=== PATIENT | male | born 1975 | race Caucasian/White ===

== ENCOUNTER 2018-11-24 15:05 | Day surgery (SDC) | payer OTHER ==
[2018-11-24] MEDS ORDERED: Sodium Chloride 0.9(Preservative Free) 10 ML IJ ONE (15:06)
[2018-11-24] MEDS ORDERED: Depo-Medrol 40 MG/ML IM ONE (15:06)
[2018-11-24] MEDS ORDERED: DIPRIVAN 200 MG/20 ML IV ONE (15:06)
[2018-11-24] MEDS ORDERED: Ketamine HCl 50 MG/ML IJ ONE (15:06)
[2018-11-24] MEDS ORDERED: Lactated Ringers 1,000 ML IV ONE (18:08)
--- NOTE | 2018-11-25 08:30 | XRAY ---
Indication: Right L4-L5 and L5-S1 transforaminal LEONEL. Intraoperative fluoroscopy was provided for 17 seconds. 2 digital spot images submitted for interpretation demonstrates posterior needle tips projecting over the expected course of the right L4 and L5 nerve roots. Small amount of contrast injected for needle tip placement. Correlate with intraoperative findings/report.
--- NOTE | 2018-11-25 08:40 | XRAY ---
17 seconds of fluoroscopy was used in surgery for a right L4L5, L5S1 transforaminal LEONEL.
== END 2018-11-24 16:57 | disposition home or self-care (01) ==
LOC: SDC-PAIN 15:05
PROVIDERS: ATTEND Psychiatry & Neurology Pain Medicine
DX: M54.16 Radiculopathy, lumbar region (principal); Z79.899 Other long term (current) drug therapy; F41.9 Anxiety disorder, unspecified; F43.10 Post-traumatic stress disorder, unspecified
CPT/HCPCS: 64483; 64484; 72020; 77003; J1030; J2704; Q9967

== ENCOUNTER 2018-12-22 10:29 | Day surgery (SDC) | payer OTHER ==
[2018-12-22] MEDS ORDERED: Sodium Chloride 0.9(Preservative Free) 10 ML IJ ONE (10:30)
[2018-12-22] MEDS ORDERED: Ketamine HCl 50 MG/ML IJ ONE (10:30)
[2018-12-22] MEDS ORDERED: DIPRIVAN 200 MG/20 ML IV ONE (10:30)
[2018-12-22] MEDS ORDERED: Depo-Medrol 40 MG/ML IM ONE (10:30)
[2018-12-22] MEDS ORDERED: Xylocaine 1% Vial 30 ML PF IJ ONE (10:30)
[2018-12-22] MEDS ORDERED: MORPHINE SULFATE 10 MG/ML ONE (12:14)
[2018-12-22] MEDS ORDERED: Zofran 4 MG/2 ML VIAL ONE (12:15)
--- NOTE | 2018-12-22 13:24 | XRAY ---
Indication: Right L4-S1 transforaminal LEONEL. Intraoperative fluoroscopy was provided for 30 seconds. Single digital spot image submitted for interpretation demonstrates posterior needle tips projecting over the expected course of the right L4 and L5 nerve roots. Small amount of contrast injected for needle tip placement. Correlate with intraoperative findings/report.
--- NOTE | 2018-12-22 13:28 | XRAY ---
30 seconds of fluoroscopy was used in surgery for a right L4-L5, L5-S1 transforaminal LEONEL.
[2018-12-22] MEDS ORDERED: Lactated Ringers 1,000 ML IV ONE (14:54)
== END 2018-12-22 12:35 | disposition home or self-care (01) ==
LOC: SDC-PAIN 10:29
PROVIDERS: ATTEND Psychiatry & Neurology Pain Medicine
DX: M54.16 Radiculopathy, lumbar region (principal); F41.9 Anxiety disorder, unspecified; F43.10 Post-traumatic stress disorder, unspecified; Z79.899 Other long term (current) drug therapy
CPT/HCPCS: 64483; 64484; 72020; 77003; J1030; J2001; J2270; J2405; J2704; Q9966

== ENCOUNTER 2019-09-27 17:25 | Emergency (ER) | payer OTHER ==
[2019-09-27] MEDS ORDERED: BABY ASPIRIN 81 MG CHEW PO ONE (17:36)
--- NOTE | 2019-09-27 17:41 | ERPHSYRPT ---
- History of Present Illness Historian: patient Exam Limitations: no limitations Timing/Duration: today, intermittent Activities at Onset: none Quality: pressure Location: other (left sided) Chest Pain Radiation: jaw, arm Severity of Pain-Max: moderate Severity of Pain-Current: mild Modifying Factors: Improves With: nothing Associated Symptoms: other (tingling left hand) Prior Chest Pain/Cardiac Workup: no prior chest pain Aspirin Treatment Today: no aspirin today Allergies/Adverse Reactions: latex Allergy (Verified 09/27/19 17:50) Home Medications: Clonazepam 0.5 mg PO BID 09/27/19 [History] Oxycodone HCl/Acetaminophen [Oxycodon-Acetaminophen 7.5-325] 1 tab PO QID PRN [History] - Review of Systems Constitutional: No Fever, No Chills Eyes: No Symptoms Ears, Nose, & Throat: No Symptoms Respiratory: Dyspnea, No Cough Cardiac: Chest Pain, No Edema, No Syncope Abdominal/Gastrointestinal: No Abdominal Pain, No Nausea, No Vomiting, No Diarrhea Genitourinary Symptoms: No Dysuria Musculoskeletal: No Back Pain, No Neck Pain Skin: No Rash Neurological: Parasthesia, No Dizziness, No Focal Weakness, No Sensory Changes Psychological: No Symptoms Endocrine: No Symptoms All Other Systems: Reviewed and Negative - Past Medical History Neurological History: Peripheral Neuropathy Cardiac History: No Pertinent History Respiratory History: No Pertinent History Endocrine Medical History: No Pertinent History Musculoskeletal History: Arthritis - Nursing Vital Signs Nursing Vital Signs: Initial Vital Signs Temperature 97.6 F 09/27/19 17:34 Pulse Rate 73 09/27/19 17:34 Respiratory Rate 13 09/27/19 17:34 Blood Pressure 133/86 09/27/19 17:34 O2 Sat by Pulse Oximetry 100 09/27/19 17:34 Pain Scale Pain Intensity 7 - Physical Exam General Appearance: no apparent distress, alert Eye Exam: PERRL/EOMI, eyes nml inspection Ears, Nose, Throat Exam: normal ENT inspection, moist mucous membranes Neck Exam: normal inspection, non-tender, supple, full range of motion Respiratory Exam: normal breath sounds, lungs clear, No respiratory distress Cardiovascular Exam: regular rate/rhythm, normal heart sounds Gastrointestinal/Abdomen Exam: soft, No tenderness, No mass Back Exam: normal inspection, No CVA tenderness, No vertebral tenderness Extremity Exam: normal inspection, normal range of motion Neurologic Exam: alert, oriented x 3, cooperative, normal mood/affect, sensation nml, No motor deficits Skin Exam: normal color, warm, dry - Course Nursing assessment & vital signs reviewed: Yes EKG Interpreted by Me: RATE (70), Sinus Rhythm, NORMAL AXIS, NORMAL INTERVALS, NORMAL QRS, NORMAL ST-T - Radiology Exams Chest X-ray Interpretation: Reviewed by me, Negative, No Pneumothorax, Nml Mediastinum Ordered Tests: Active Orders 24 hr Category Date Time Status Utility Hand STAT Care 09/27/19 17:37 Active EKG-ER Only STAT Care 09/27/19 17:30 Active IV Insertion STAT Care 09/27/19 17:36 Active Oxygen-ED Only Nasal Cannula 2 lpm Care 09/27/19 17:36 Active CHEST 1 VIEW (PORTABLE) Stat Exams 09/27/19 17:37 Taken CBC W DIFF Stat Lab 09/27/19 17:54 Completed CMP Stat Lab 09/27/19 17:54 Completed NT PRO BNP Stat Lab 09/27/19 17:54 Completed PROTIME WITH INR Stat Lab 09/27/19 17:54 Completed PTT Stat Lab 09/27/19 17:54 Completed TROPONIN Q3H Lab 09/27/19 17:54 Completed TROPONIN Q3H Lab 09/27/19 20:10 Completed Medication Summary Discontinued Medications Generic Name Dose Route Start Last Admin Trade Name Freq PRN Reason Stop Dose Admin Aspirin 324 mg 09/27/19 17:36 09/27/19 17:48 Baby Aspirin 81 Mg Chew PO 09/27/19 17:37 324 mg STAT ONE Administration Ketorolac Tromethamine 30 mg 09/27/19 19:21 09/27/19 19:33 Toradol 30 Mg Injection IV 09/27/19 19:22 30 mg STAT ONE Administration Ketorolac Tromethamine Confirm 09/27/19 19:30 Toradol 30 Mg Injection Administered 09/27/19 19:31 Dose 30 mg .ROUTE [email or web address] ONE Lab/Rad Data: Laboratory Result Diagrams 09/27/19 17:54 09/27/19 17:54 Laboratory Results 09/27/19 09/27/19 09/27/19 Range/Units 20:10 17:54 17:54 WBC (4.0-10.5) K/mm3 RBC (4.1-5.6) M/mm3 Hgb (12.5-18.0) gm/dl Hct (42-50) % MCV (78-100) fl MCH (26-32) pg MCHC (32-36) g/dl RDW (11.5-14.0) % Plt Count (150-450) K/mm3 MPV (7.5-11.0) fl Gran % (36.0-66.0) % Eos # (Auto) (0-0.5) Absolute Lymphs (auto) (1.0-4.6) Absolute Monos (auto) (0.0-1.3) Lymphocytes % (24.0-44.0) % Monocytes % (0.0-12.0) % Eosinophils % (0.00-5.0) % Basophils % (0.0-0.4) % Absolute Granulocytes (1.4-6.9) Basophils # (0-0.4) PT 12.5 (8.83-12.87) SECONDS INR 1.10 (0.8-3.0) APTT 34.8 (24.1-36.1) SECONDS Sodium (137-145) mmol/L Potassium (3.5-5.1) mmol/L Chloride (98-107) mmol/L Carbon Dioxide (22-30) mmol/L Anion Gap (5-15) MEQ/L BUN (9-20) mg/dL Creatinine (0.66-1.25) mg/dL Estimated GFR ML/MIN Glucose (74-106) mg/dL Calcium (8.4-10.2) mg/dL Total Bilirubin (0.2-1.3) mg/dL AST (17-59) U/L ALT (0-50) U/L Alkaline Phosphatase (38-126) U/L Troponin I < 0.012 < 0.012 (0.000-0.034) ng/mL NT-Pro-B Natriuret Pep (0-450) pg/mL Serum Total Protein (6.3-8.2) g/dL Albumin (3.5-5.0) g/dL 09/27/19 09/27/19 Range/Units 17:54 17:54 WBC 4.9 (4.0-10.5) K/mm3 RBC 4.84 (4.1-5.6) M/mm3 Hgb 15.0 (12.5-18.0) gm/dl Hct 44.0 (42-50) % MCV 90.9 (78-100) fl MCH 31.0 (26-32) pg MCHC 34.1 (32-36) g/dl RDW 13.3 (11.5-14.0) % Plt Count 212 (150-450) K/mm3 MPV 10.7 (7.5-11.0) fl Gran % 50.3 (36.0-66.0) % Eos # (Auto) 0.07 (0-0.5) Absolute Lymphs (auto) 1.82 (1.0-4.6) Absolute Monos (auto) 0.53 (0.0-1.3) Lymphocytes % 37.1 (24.0-44.0) % Monocytes % 10.8 (0.0-12.0) % Eosinophils % 1.4 (0.00-5.0) % Basophils % 0.4 (0.0-0.4) % Absolute Granulocytes 2.47 (1.4-6.9) Basophils # 0.02 (0-0.4) PT (8.83-12.87) SECONDS INR (0.8-3.0) APTT (24.1-36.1) SECONDS Sodium 143 (137-145) mmol/L Potassium 3.9 (3.5-5.1) mmol/L Chloride 101 (98-107) mmol/L Carbon Dioxide 29 (22-30) mmol/L Anion Gap 16.7 H (5-15) MEQ/L BUN 15 (9-20) mg/dL Creatinine 0.92 (0.66-1.25) mg/dL Estimated GFR > 60.0 ML/MIN Glucose 94 (74-106) mg/dL Calcium 9.7 (8.4-10.2) mg/dL Total Bilirubin 0.70 (0.2-1.3) mg/dL AST 29 (17-59) U/L ALT 29 (0-50) U/L Alkaline Phosphatase 69 (38-126) U/L Troponin I (0.000-0.034) ng/mL NT-Pro-B Natriuret Pep 28.1 (0-450) pg/mL Serum Total Protein 8.2 (6.3-8.2) g/dL Albumin 4.9 (3.5-5.0) g/dL - Progress Progress: improved Air Movement: good Progress Note: 09/27/19 20:55 Low risk. MInimal risk factors. Has residual flu symptoms. Stilll coughing. CXR neg. Will Rx steroids. Pt has had before for similar symptoms. 09/27/19 20:58 Was bit anxious. has hx of anxiety. CP resolved with toradol. Blood Culture(s) Obtained: No Antibiotics given: No Counseled pt/family regarding: lab results, diagnosis, need for follow-up, rad results - Departure Departure Disposition: Home Clinical Impression: Chest pain Qualifiers: Chest pain type: unspecified Qualified Code(s): R07.9 - Chest pain, unspecified URI (upper respiratory infection) Qualifiers: URI type: unspecified URI Qualified Code(s): J06.9 - Acute upper respiratory infection, unspecified Condition: Stable Critical Care Time: No Referrals: MATTHEW ARNOLD MD [Primary Care Provider] - Instructions: Chest Pain (DC) Additional Instructions: Hydration. Monitor symptoms closely. Take meds as prescribed. Follow up with your PCP for recheck. Return to [facility] if worse. Prescriptions: Prednisone 20 mg [Deltasone 20 mg] 20 mg PO DAILY 5 Days #5 tablet
[2019-09-27 17:58] LABS: Absolute Neutrophil Ct (ANC) 2.47 (1.4-6.9); BASOPHIL % 0.4 % (0.0-0.4); Basophil (Absolute #) 0.02 (0-0.4); Eosinophil % 1.4 % (0.00-5.0); Eosinophil (Absolute #) 0.07 (0-0.5); Lymphocyte (Absolute #) 1.82 (1.0-4.6); Lymphocytes % 37.1 % (24.0-44.0); Mean Cell Volume 90.9 fl (78-100); Mean Corpuscular Hgb Concent. 34.1 g/dl (32-36); Mean Platelet Volume 10.7 fl (7.5-11.0); Monocyte (Absolute #) 0.53 (0.0-1.3); Monocytes % 10.8 % (0.0-12.0); Neutrophil % 50.3 % (36.0-66.0); Platelet Count 212 K/mm3 (150-450); Red Blood Count 4.84 M/mm3 (4.1-5.6); Red Cell Distribution Width 13.3 % (11.5-14.0); White Blood Count 4.9 K/mm3 (4.0-10.5)
[2019-09-27 18:11] LABS: INR 1.1 (0.8-3.0); PROTIME 12.5 SECONDS (8.83-12.87)
[2019-09-27 18:14] LABS: PTT 34.8 SECONDS (24.1-36.1)
[2019-09-27 18:24] LABS: ALBUMIN 4.9 g/dL (3.5-5.0); ALKALINE PHOSPHATASE 69 U/L (38-126); ANION GAP 16.7 MEQ/L (5-15); BLOOD UREA NITROGEN 15 mg/dL (9-20); CHLORIDE 101 mmol/L (98-107); Calcium 9.7 mg/dL (8.4-10.2); Carbon Dioxide 29 mmol/L (22-30); Creatinine 1 0.92 mg/dL (0.66-1.25); Glucose 94 mg/dL (74-106); NT PRO BNP 28.1 pg/mL (0-450); Potassium 3.9 mmol/L (3.5-5.1); SGOT/AST 29 U/L (17-59); SGPT/ALT 29 U/L (0-50); SODIUM 143 mmol/L (137-145); Total Protein 8.2 g/dL (6.3-8.2)
[2019-09-27] MEDS ORDERED: TORAdol 30 mg Injection IV ONE (19:21)
[2019-09-27] MEDS ORDERED: TORAdol 30 mg Injection ONE (19:30)
[2019-09-27 20:11] VITALS: O2SAT 99
[2019-09-27 21:25] VITALS: BP 114/76; PULSE 82
--- NOTE | 2019-09-28 08:38 | XRAY ---
Indication: Chest pain/pressure. Comparison: September 06, 2019. Portable chest continues to demonstrate normal heart, lungs, and bony thorax.
== END 2019-09-27 21:23 | disposition home or self-care (01) ==
LOC: ED 17:25
DX: R07.9 Chest pain, unspecified (principal); J06.9 Acute upper respiratory infection, unspecified
CPT/HCPCS: 36000; 36415; 71045; 80053; 83880; 84484; 85025; 85610; 85730; 93005; 93041; 96374; 99284; J1885; A9270-GY